=== PATIENT | female | born 1965 | race Caucasian/White ===

== ENCOUNTER 2020-07-15 15:24 | Emergency (ER) | payer MEDICARE, OTHER ==
[2020-07-15] MEDS ORDERED: VITAMIN D310 MC3 (15:46)
[2020-07-15] MEDS ORDERED: NATURE'S BLEND500 M5 PO (15:46)
[2020-07-15] MEDS ORDERED: IRON236 MG (15:47)
[2020-07-15 16:49] LABS: HEMATOCRIT 41.7 % (37.0-47.0); HEMOGLOBIN 13.8 g/dL (12.5-16.0); MEAN CELL VOLUME 93 fl (78-100); MEAN CORPUSCULAR HEMOGLOBIN 31 pg (27-31); MEAN CORPUSCULAR HGB CONC 33 g/dL (33-37); MEAN PLATELET VOLUME 9.4 fl (7.4-10.4); PLATELET COUNT 241 K/mm3 (130-400); RED BLOOD COUNT 4.49 M/mm3 (4.10-5.30); RED CELL DISTRIBUTION WIDTH 13.5 % (11.5-14.5); WHITE BLOOD COUNT 10.5 K/mm3 (4.8-10.8)
[2020-07-15 17:11] LABS: SODIUM 140 mmol/L (136-145)
[2020-07-15 17:12] LABS: ALBUMIN 4.1 g/dL (3.5-5.0)
[2020-07-15 17:13] LABS: CALCIUM 8.7 mg/dL (8.3-10.5)
[2020-07-15 17:15] LABS: CARBON DIOXIDE 21 mmol/L (22-29); GLUCOSE 142 mg/dL (65-105); TOTAL PROTEIN 7.5 g/dL (6.4-8.3)
[2020-07-15 17:16] LABS: TOTAL BILIRUBIN 0.7 mg/dL (0.2-1.2)
[2020-07-15 17:19] LABS: AST-SGOT 25 U/L (5-34)
[2020-07-15 17:22] LABS: ALT/SGPT 31 U/L (0-55); LIPASE 48 U/L (8-78)
[2020-07-15 17:38] LABS: LYMPHOCYTE 19 % (20-51); MONOCYTE 2 % (3-10); NEUTROPHILS 79 % (42-75)
[2020-07-15 17:40] LABS: PARTIAL THROMBOPLASTIN TIME 20.2 SECONDS (21.0-32.0); PROTHROMBIN TIME 9.6 SECONDS (9.0-12.0)
[2020-07-15 17:59] LABS: TROPONIN-I < 0.03 ng/mL (<0.030)
[2020-07-15 18:32] VITALS: BP 147/87
== END 2020-07-15 18:33 | disposition left against medical advice (07) ==
LOC: ED 15:24
PROVIDERS: Nurse Practitioner
DX: T78.40XA Allergy, unspecified, initial encounter (principal); R79.1 Abnormal coagulation profile; Z88.1 Allergy status to other antibiotic agents; Z88.8 Allergy status to other drugs, medicaments and biological substances; Z20.822 Contact with and (suspected) exposure to COVID-19
CPT/HCPCS: J7512

== ENCOUNTER → 2020-07-18 | Day surgery (SDC) | payer MEDICARE, OTHER ==
[2020-07-15 18:32] VITALS: BP 147/87
[~2020-07-18] MED LIST: IRON236 MG; NATURE'S BLEND500 M5 PO; VITAMIN D310 MC3
== END ==
LOC: MSO 07:16
DX: D12.2 Benign neoplasm of ascending colon (principal); K58.0 Irritable bowel syndrome with diarrhea; K21.00 Gastro-esophageal reflux disease with esophagitis, without bleeding; I10 Essential (primary) hypertension; Z80.49 Family history of malignant neoplasm of other genital organs; Z79.899 Other long term (current) drug therapy
CPT/HCPCS: 00813; J2704; J7120

== ENCOUNTER 2021-05-29 13:00 | Outpatient (RCR) | payer MEDICARE, OTHER | END 2021-06-02 | disposition home or self-care (01) | LOC: PT | DX: M25.562 Pain in left knee (principal) ==

== ENCOUNTER 2021-06-03 08:15 | Outpatient (RCR) | payer MEDICARE, OTHER | END 2021-06-30 | disposition home or self-care (01) | LOC: PT | DX: M25.562 Pain in left knee (principal) ==

== ENCOUNTER 2021-07-03 08:30 | Outpatient (RCR) | payer MEDICARE, OTHER | END 2021-07-31 | disposition still patient (30) | LOC: PT | DX: M25.562 Pain in left knee (principal) ==

== ENCOUNTER → 2024-06-06 | Outpatient (CLI) | payer MEDICARE, OTHER | LOC: RAD 11:06 | DX: R19.00 Intra-abdominal and pelvic swelling, mass and lump, unspecified site (principal); Z90.710 Acquired absence of both cervix and uterus ==